=== PATIENT | male | born 1985 | race African-American/Black ===

== ENCOUNTER 2016-09-09 16:27 | Emergency (ER) | payer OTHER ==
[~2016-09-09] VITALS: Ht 182.9 cm; Wt 108.9 kg
[~2016-09-09 16:27] MED LIST: BACTRIM DS 8001 TAB PO; KEFLEX500 MG PO; OXYCODONE5 M1 PO; OXYCONTIN10 MG PO
[2016-09-09 16:30] VITALS: BP 168/73
--- NOTE | 2016-09-09 17:33 | ED INFLUENZA/URI COMPLAINT ---
History of Present Illness General Chief Complaint: Upper Respiratory Sx/Fever Stated Complaint: COUGH,CONGESTION Source: patient, old records Exam Limitations: no limitations Vital Signs & Intake/Output Vital Signs & Intake/Output Vital Signs Date Time Temp Pulse Resp B/P Pulse O2 O2 Flow FiO2 Ox Delivery Rate 09/09 1630 97.7 77 20 168/73 99 Room Air Allergies Coded Allergies: NO KNOWN ALLERGIES (08/19/15) Reconcile Medications Azithromycin (Zithromax) 250 MG TABLET 1 DP PO AD uri 2 the first day followed by 1 for days 2-5 Cephalexin (Keflex) 500 MG CAP 1 TAB PO 4 TIMES/DAY CELLULITIS Lisinopril 10 MG TABLET 1 TAB PO DAILY htn Oxycodone Cr (OxyContin) 10 MG TAB 1 TAB PO BID PAIN OXYCODONE HCL (Oxycodone) 5 MG CAP 1-2 TAB PO Q6P PRN PAIN Sulfamethoxazole/Trimethopri (Bactrim Ds 800 MG-160 MG) 1 TAB TAB 1 TAB PO BID CELLULITIS Triage Note: PT TO ED C/O URI S/S X 1 WEEK. UNSURE IF FEVERS AT HOME, AFEBRILE NOW. NON-PRODUCTIVE COUGH. Triage Nurses Notes Reviewed? yes Onset: Gradual Duration: week(s): (1), constant Timing: recent history Severity: mild, moderate Severity Numbers: 5 No Modifying Factors: none Associated Symptoms: cough, muscle aches, nasal congestion, nasal drainage HPI: 31-year-old male presents emergency room complaining of nonproductive cough, congestion and rhinorrhea for the past 1 week. He denies fevers chills shortness of breath sore throat or ear pain. He has not attempted taking any [id number] medications for his symptoms. He does not smoke. No chest pain abdominal pain nausea vomiting or diarrhea or no modifying factors or associated symptoms otherwise. On arrival the patient is also requesting a refill of his lisinopril which she takes for hypertension. No palpitations chest pain dizziness lightheadedness (HUDSON SOUSA) Past History Travel History Traveled to [place] past 21 day No Medical History Any Pertinent Medical History? see below for history Neurological: NONE EENT: NONE Cardiovascular: hypertension Respiratory: NONE Gastrointestinal: NONE Hepatic: NONE Renal: NONE Musculoskeletal: NONE Psychiatric: NONE Endocrine: NONE Blood Disorders: NONE Cancer(s): NONE VP PRODUCT MANAGEMENT/Reproductive: NONE Surgical History Surgical History: non-contributory Psychosocial History What is your primary language Taiwanese Tobacco Use: Current Not Daily ETOH Use: denies use Illicit Drug Use: denies illicit drug use Family History Hx Contributory? No (HUDSON SOUSA) Review of Systems Review of Systems Constitutional: Reports: see HPI. All Other Systems: Reviewed and Negative Comments Review of systems: See HPI, All other systems negative. Constitutional, no chills no fever, no malaise HEENT: No visual changes no sore throat congestion, no ear pain Cardiovascular: No chest pain , no palpitation , Skin, no rashes, no change in skin Respiratory: No dyspnea cough no sputum no hemoptysis GI: No nausea no vomiting, no diarrhea, no bloating/constipation : No dysuria Muscle skeletal: No joint pain, no joint swelling, no back pain, no neck pain, Neurologic: No numbness no confusion, no headache Psych: No stress Heme/endocrine: No bruising no bleeding Immunology: No lymphadenopathy, (HUDSON SOUSA) Physical Exam Physical Exam General Appearance: well developed/nourished, no apparent distress, alert Ears, Nose, Throat: normal ENT inspection, moist mucous membrane Comments: Well-developed well-nourished patient in no apparent distress. Head/Face: Atraumatic, no maxillary/frontal sinus tenderness, no facial swelling Eyes: PERRL, EOMI, no conjunctival injection. No nystagmus Ear:External auditory canal and Tympanic membranes clear, no erythema, no FB. Nose: atraumatic.Normal inspection: No bleeding, no septal hematoma Throat: Moist mucous membranes.Pharynx normal. No pharyngeal erythema/exudate seen. No stridor/drooling or assymetry. No swelling or edema. Neck: Supple, no lymphadenopathy, FROM Back: FROM, Nontender Cardiovascular: Regular rate and rhythms no murmurs rubs or gallops, Respiratory: Chest nontender.There were no bony deformities, no asymmetry. No respiratory distress. Patient speaking in full complete sentences. Breath sounds clear to auscultation bilaterally: NO W/R/R Extremities: full range of motion Neuro: Alert and oriented x3 Skin: Warm & dry;No appreciable rash on exposed skin Psych: Mood affect normal, normal memory normal judgment. Core Measures Severe Sepsis Present: No Septic Shock Present: No (HUDSON SOUSA) Progress Differential Diagnosis: influenza, otitis, pneumonia, pharyngitis, sinusitis, bronchitis Plan of Care: Patient clinically appears well afebrile nontoxic appearing advise close follow up with his primary care physician return anytime sooner with any concerns prescription for Z-Eduardo provided for discharge Initial ED EKG: none (HUDSON SOUSA) Departure Departure Time of Disposition: 1743 Disposition: HOME OR SELF CARE Condition: Stable Clinical Impression Primary Impression: Bronchitis Secondary Impressions: Medication refill Referrals: UNKNOWN (PCP) Additional Instructions: Follow-up with your primary care physician this week. Lisinopril as directed Z- Eduardo as directed Tylenol Motrin as needed for fevers bodyaches. Drink plenty of fluids return anytime sooner with any concerns Your prescriptions were sent to your pharmacy Departure Forms: Customer Survey General Discharge Information Prescriptions: Current Visit Scripts Lisinopril 1 TAB PO DAILY #30 TAB Azithromycin (Zithromax) 1 DP PO AD #6 TAB 2 the first day followed by 1 for days 2-5 (HUDSON SOUSA) PA/INSIDE SALES ACCOUNT EXECUTIVE Co-Sign Statement Statement: ED Attending supervision documentation- [] I saw and evaluated the patient. I have also reviewed all the pertinent lab results and diagnostic results. I agree with the findings and the plan of care as documented in the PA's/INSIDE SALES ACCOUNT EXECUTIVE's documentation. [x] I have reviewed the ED Record and agree with the PA's/INSIDE SALES ACCOUNT EXECUTIVE's documentation. [] Additions or exceptions (if any) to the PAs/INSIDE SALES ACCOUNT EXECUTIVE's note and plan are summarized below: [] (RADHA COLE DO
[2016-09-09] MEDS ORDERED: LISINOPRIL10 M1 PO (17:45)
[2016-09-09] MEDS ORDERED: ZITHROMAX250 M2 PO (17:45)
== END 2016-09-09 17:45 ==
LOC: ERH 16:27
DX: J40 Bronchitis, not specified as acute or chronic (principal); Z76.0 Encounter for issue of repeat prescription